=== PATIENT | female | born 1945 | race Hispanic/Latino ===

== ENCOUNTER 2018-11-01 19:30 | Emergency (ER) | payer MEDICARE ==
[2018-11-01 19:30] VITALS: BMI 34.2
[2018-11-01 19:51] VITALS: RESP 16
--- NOTE | 2018-11-01 20:16 | ED PDOC ---
HPI: Trauma/Fall - HPI Time Seen by Provider: 11/01/18 19:54 Chief Complaint (Nursing): Trauma Chief Complaint (Provider): Trauma History Per: Patient History/Exam Limitations: no limitations Onset/Duration Of Symptoms: Hrs Additional Complaint(s): 73 y/o female with a PMHx of HTN presents to the ED for evaluation of a possible head injury s/p fall, onset prior to arrival. Patient reports she was walking outside in the dark when she tripped on the sidewalk landing on her right knee, hitting the right side of her head. Patient reports of no pain to the head or knee at the time. Patient states she noticed bump above eyebrow while looking in the mirror upon arriving home. Patient reports she wanted to be safe thus prompting her to come to the ER for further evaluation. Otherwise, patient denies any pain at present, headache, taking any medications for symptoms and any loss of consciousness. PMD: Tom Peterson Past Medical History Reviewed: Historical Data, Nursing Documentation, Vital Signs Vital Signs: Last Vital Signs Temp 97.9 F 11/01/18 19:48 Pulse 76 11/01/18 19:48 Resp 16 11/01/18 19:48 BP 109/75 11/01/18 19:48 Pulse Ox 96 11/01/18 19:48 - Medical History PMH: HTN - Surgical History Surgical History: Tonsillectomy Other surgeries: Kidney Transplant, Tubal Ligation - Family History Family History: States: Unknown Family Hx - Home Medications Home Medications: Ambulatory Orders Medication Instructions Recorded Methylphenidate HCl 20 mg PO DAILY 04/02/18 [Methylphenidate ER] Metoprolol Tartrate [Lopressor] 25 mg PO DAILY 04/02/18 Vortioxetine Hydrobromide 10 mg PO DAILY 04/02/18 [Trintellix] amLODIPine [Norvasc] 10 mg PO DAILY 04/02/18 - Allergies Allergies/Adverse Reactions: Allergies Allergy/AdvReac Type Severity Reaction Status Date / Time No Known Allergies Allergy Verified 11/01/18 19:47 Review of Systems ROS Statement: Except As Marked, All Systems Reviewed And Found Negative Musculoskeletal: Positive for: Other (head injury). Negative for: Leg Pain Neurological: Negative for: Other (loss of consciousness) Physical Exam - Reviewed Nursing Documentation Reviewed: Yes Vital Signs Reviewed: Yes - Physical Exam Appears: Positive for: No Acute Distress Head Exam: Positive for: ATRAUMATIC, NORMOCEPHALIC. Negative for: NORMAL INSPECTION (Hematoma located to the right temporal area) Skin: Positive for: Normal Color, Warm, Dry Eye Exam: Positive for: Normal appearance, EOMI, PERRL Neck: Positive for: Normal, Painless ROM, Supple Extremity: Positive for: Normal ROM. Negative for: Deformity Neurologic/Psych: Positive for: Alert, Oriented (x3). Negative for: Motor/Sens ory Deficits - ECG O2 Sat by Pulse Oximetry: 96 (RA) Pulse Ox Interpretation: Normal - Progress Re-evaluation Time: 21:42 Condition: Re-examined, Improved Medical Decision Making Medical Decision Making: Time: 2006 Impression: Head injury Rule out intracranial bleeding Plan: -- CT Head w/o Contrast Time: 2128 CT RESULTS FINDINGS: BRAIN There is very mild diffuse cortical/cerebellar atrophy present. No acute intraparenchymal hemorrhage. No mass lesion. No CT evidence for acute territorial infarct. No midline shift or extra-axial collections. There are bilateral confluent periventricular and subcortical white matter hypolucencies compatible with mild chronic microvascular disease. VENTRICLES: No hydrocephalus. ORBITS: The orbits appear to be intact. A right lateral periorbital hematoma is identified. SINUSES AND MASTOIDS: The paranasal sinuses and mastoid air cells are clear. BONES: No fracture. SOFT TISSUES: Unremarkable. A right lateral periorbital hematoma is noted. IMPRESSION: 1. No acute intracranial abnormality. 2. Mild diffuse cerebral/cerebellar atrophy which appears age appropriate. 3. Mild chronic microvascular disease. 4. A right lateral periorbital hematoma is present. Electronically signed on Nov 01, 2018 9:29:18 PM EST by: Vicente Acharya M.D., LOUANN Certified By [facility] [employer] [facility] Fellowship Trained MRI and CT Specialist Scribe Attestation: Documented by Thai Ortiz, acting as a scribe for Vivian Walker MD. Provider Scribe Attestation: All medical record entries made by the Scribe were at my direction and personally dictated by me. I have reviewed the chart and agree that the record accurately reflects my personal performance of the history, physical exam, medical decision making, and the department course for this patient. I have also personally directed, reviewed, and agree with the discharge instructions and disposition. Disposition - Clinical Impression Clinical Impression: Head injury, Facial hematoma - Patient ED Disposition Is Patient to be Admitted: No Doctor Will See Patient In The: Office Counseled Patient/Family Regarding: Studies Performed, Diagnosis, Need For Fo llowup - Disposition Referrals: Tom Peterson MD [Staff Provider] - Disposition: Routine/Home Disposition Time: 21:42 Condition: GOOD Additional Instructions: BRADLEY CANALES, thank you for letting us take care of you today. Your provider was Vivian Walker MD and you were treated for FALL:HEAD INJURY. The emergency medical care you received today was directed at your acute symptoms. If you were prescribed any medication, please fill it and take as directed. It may take several days for your symptoms to resolve. Return to the Emergency Department if your symptoms worsen, do not improve, or if you have any other problems. Please contact your doctor or call one of the physicians/clinics you have been referred to that are listed on the Patient Visit Information form that is included in your discharge packet. Bring any paperwork you were given at discharge with you along with any medications you are taking to your follow up visit. Our treatment cannot replace ongoing medical care by a primary care provider outside of the emergency department. Thank you for allowing the [facility] team to be part of your care today. If you had an X-Ray or CT scan: A Radiologist will review the ED reading if any change in treatment is needed we will contact you. If you had a blood, urine, or wound culture: It will take several days for the results, if any change in treatment is needed we will contact you. If you had an STI test: It will take 48 hours for the results. Please call after 1 week if you have not heard back. Instructions: Closed Head Injury (DC)
[2018-11-01 22:07] VITALS: BP 116/78; PULSE 80; TEMP 98.2; O2SAT 98
--- NOTE | 2018-11-02 09:35 | CT ---
Date of service: 11/01/2018 PROCEDURE: CT HEAD WITHOUT CONTRAST. HISTORY: head injury COMPARISON: A over TECHNIQUE: Axial computed tomography images were obtained through the head/brain without intravenous contrast. Radiation dose: Total exam DLP = 914.27 mGy-cm. This CT exam was performed using one or more of the following dose reduction techniques: Automated exposure control, adjustment of the mA and/or kV according to patient size, and/or use of iterative reconstruction technique. FINDINGS: HEMORRHAGE: No parenchymal, subarachnoid or extra-axial hemorrhage. BRAIN: Mild chronic periventricular white matter ischemic changes. Moderate central volume loss evidenced by slight disproportionate enlargement of the ventricles as compared the sulci VENTRICLES: No obstructive hydrocephalus. CALVARIUM: Calvarium intact. PARANASAL SINUSES: Unremarkable as visualized. No significant inflammatory changes. MASTOID AIR CELLS: Unremarkable as visualized. No inflammatory changes. OTHER FINDINGS: Is a small to medium-sized right lateral periorbital soft tissue hematoma which extends superiorly over the right lateral orbital rim lateral frontotemporal region. IMPRESSION: No acute intracranial hemorrhage. Mild chronic white matter ischemic changes. Moderate central volume loss. Right lateral periorbital supraorbital and frontal scalp hematoma. The
== END 2018-11-01 22:07 | disposition home or self-care (01) ==
LOC: H.ER 19:30
DX: S09.90XA Unspecified injury of head, initial encounter (principal); S00.03XA Contusion of scalp, initial encounter; S00.10XA Contusion of unspecified eyelid and periocular area, initial encounter; W01.0XXA Fall on same level from slipping, tripping and stumbling without subsequent striking against object, initial encounter; Y92.480 Sidewalk as the place of occurrence of the external cause; Y93.01 Activity, walking, marching and hiking; I10 Essential (primary) hypertension; Z94.0 Kidney transplant status